=== PATIENT | male | born 1995 | race Caucasian/White ===

== ENCOUNTER 2022-10-20 19:58 | Emergency (ER) | payer SELFPAY ==
[~2022-10-20] VITALS: Ht 170.2 cm; Wt 68.9 kg
[2022-10-20 20:11] VITALS: BP 131/81
--- NOTE | 2022-10-20 20:22 | NUR ---
Dr. Amos examining patient.
== END 2022-10-20 20:24 | disposition home or self-care (01) ==
LOC: MED 19:58
DX: F41.9 Anxiety disorder, unspecified (principal)
CPT/HCPCS: 93005; 99283